=== PATIENT | male | born 1940 | race Caucasian/White ===

== ENCOUNTER 2017-11-03 18:47 | Emergency (ER) | payer OTHER ==
[~2017-11-03] VITALS: Ht 172.7 cm; Wt 71.3 kg
[~2017-11-03 18:47] MED LIST: AGGRENOX1 CAPSULE PO; AMLODIPINE BESY10 MG PO; DYAZIDE, MA1 CAPSULE PO; FOLIC ACID0.4 MG PO; METOPROLOL TART50 MG PO; MIRTAZAPINE30 MG PO; MULTIVITAMIN1 EAC1 PO; PRILOSEC20 MG PO; PRINIVIL40 MG PO; SIMVASTATIN80 MG PO; VITAMIN B1,100 MG/ML PO
[2017-11-03 21:14] LABS: HEMATOCRIT 35.3 % (38.0-50.0); MCH 33.6 PG (29.0-34.0); MCV 98.9 FL (86-99); PLATELET COUNT 198 K/uL (156-360); RBC DIS.WIDTH-CV 12.9 % (11.8-14.6); RBC DIS.WIDTH-SD 46.9 % (39-53); RED BLOOD COUNT 3.57 M/uL (4.00-5.50); WHITE BLOOD COUNT 7.9 K/uL (4.1-10.2)
[2017-11-03 21:26] LABS: CHLORIDE 107 mEq/L (99-109); POTASSIUM 4.2 mEq/L (3.7-5.4)
[2017-11-03 21:27] LABS: SODIUM 141 mEq/L (136-147)
[2017-11-03 21:28] LABS: GLUCOSE 86 mg/dL (70-99)
[2017-11-03 21:32] LABS: CREATININE 1.2 mg/dL (0.6-1.3); GFR ESTIMATE (CALCULATED) > 59 mL/min/ (58.99-99999)
[2017-11-03 21:33] LABS: UREA NITROGEN (BUN) 17 mg/dL (9-23)
[2017-11-03 22:17] LABS: APPEARANCE SL.HAZY ((CLEAR)); BILIRUBIN NEGATIVE; BLOOD NEGATIVE; COLOR YELLOW ((YELLOW)); GLUCOSE (STRIP) NEGATIVE; KETONES NEGATIVE; LEUKOCYTES NEGATIVE; NITRITE NEGATIVE; PROTEIN (STRIP) NEGATIVE; SPECIFIC GRAVITY 1.016 (1.000-1.030)
[2017-11-03 22:22] LABS: BACTERIA NONE SEEN /HPF; EPITHELIAL CELLS RARE /HPF; MUCUS TRACE /LPF; RED BLOOD CELLS 0-5 /HPF (0-5); UCUL ADDED? NO; WHITE BLOOD CELLS 0-5 /HPF (0-5)
[2017-11-03 23:10] VITALS: BP 138/63
== END 2017-11-03 23:56 | disposition home or self-care (01) ==
LOC: EME 18:47
PROVIDERS: Nurse Practitioner Family
DX: M79.605 Pain in left leg (principal); M17.12 Unilateral primary osteoarthritis, left knee; M16.12 Unilateral primary osteoarthritis, left hip; I11.0 Hypertensive heart disease with heart failure; I50.9 Heart failure, unspecified; J43.9 Emphysema, unspecified; I25.2 Old myocardial infarction; Z86.73 Personal history of transient ischemic attack (TIA), and cerebral infarction without residual deficits; Z87.891 Personal history of nicotine dependence
CPT/HCPCS: 73502; 73552; 80048; 81003; 85027; 99281; 99284